=== PATIENT | male | born 1950 | race Caucasian/White ===

== ENCOUNTER 2017-04-09 12:29 | Inpatient (IN) ==
[2017-04-09] MEDS ORDERED: SODIUM CHLORIDE 0.9% 2,250 ML IV ONE (12:52)
[2017-04-09 13:07] LABS: Basophils # 0.1 10*3/uL (0.0-0.2); Basophils % 0.3 % (0.0-0.8); Eosinophils # 0.2 10*3/uL (0.0-0.87); Eosinophils % 1.3 % (0.00-10.9); Hematocrit 33.2 VOL% (42.0-52.0); Hemoglobin 11.6 GM/DL (14.0-18.0); Immature Granulocytes % 0.7 %; Immature Granulocytes Absolute 0.12 #; Lymphocytes # 1.6 10*3/uL (1.4-4.0); Mean Corpuscular HGB Conc 34.9 GM/DL (32-36); Mean Corpuscular Hemoglobin 32 PG (27-34); Mean Corpuscular Volume 90.7 FL (87-102); Monocytes # 1.4 10*3/uL (0.11-0.8); Monocytes % 8.1 % (1.7-12.7); Neutrophils # 13.8 10*3/uL (1.4-7.4); Neutrophils % 80.6 % (38.7-73.9); Platelet Count 333 T/CUMM (130-400); Red Blood Count 3.66 MC/CUMM (3.8-5.5); Red Cell Distribution Width 14.7 % (9.3-17.3); White Blood Count 17.2 T/CUMM (4-12)
[2017-04-09] MEDS ORDERED: PIPERACILLIN/TAZOBACTAM 3,375 MG VIAL IV ONE (13:24)
[2017-04-09] MEDS ORDERED: SODIUM CHLORIDE 0.9% 100 ML IV ONE (13:25)
[2017-04-09 13:26] LABS: INR 1.1; PT Patient Result 11.6 SECS; Partial Thromboplastin Time 35.2 SECS (0-40)
[2017-04-09] MEDS: PIPERACILLIN/TAZOBACTAM 3,375 MG in SODIUM CHLORIDE 0.9% 100 ML IV SCH ×2 (13:29→21:17)
[2017-04-09 13:38] LABS: Lactic Acid 1.7 MMOL/L (0.4-2.0)
[2017-04-09 13:40] LABS: Albumin 2.4 G/DL (3.4-5.0); Bilirubin,Total 0.7 MG/DL (0.2-1.0); Osmolality,Calculated 270.4 MOS/KG (273-304); Potassium 3.9 MMOL/L (3.5-5.1)
[2017-04-09 14:13] LABS: Apearance,Urine CLOUDY (Clear); Bacteria,Urine Many /HPF (Few); Bilirubin,Urine Negative (Negative); Blood, Urine Small mg/dL (Negative); Glucose,Urine (UA) Negative (Negative); Ketones,Urine Negative (Negative); Mucus,Urine Few /LPF (Occasional); Nitrite,Urine Negative (Negative); Protein,Urine 100 MG/DL; RBC,Urine 8 /HPF (0-4); Urine Color Amber (Yellow); Urine Specific Gravity 1.014 (1.001-1.035); WBC,Urine 444 /HPF (0-6)
[2017-04-09] MEDS: SODIUM CHLORIDE 0.9% 1,000 ML IV SCH (15:10)
[2017-04-09] MEDS ORDERED: ACETAMINOPHEN 325 MG TABLET PO PRN (16:02)
[2017-04-09] MEDS ORDERED: ONDANSETRON 4 MG/2 ML VIAL IV PRN (16:02)
[2017-04-09] MEDS ORDERED: VANCOMYCIN INJ 1,250 MG in SODIUM CHLORIDE 0.45% 250 ML IV SCH (17:00)
[2017-04-09] MEDS ORDERED: NOREPINEPHRINE 8 MG in SODIUM CHLORIDE 0.9% 242 ML IV SCH (17:51)
[2017-04-10 03:53] LABS: Basophils # 0.1 10*3/uL (0.0-0.2); Basophils % 0.4 % (0.0-0.8); Eosinophils # 0.2 10*3/uL (0.0-0.87); Eosinophils % 1.3 % (0.00-10.9); Hematocrit 31.7 VOL% (42.0-52.0); Hemoglobin 11.3 GM/DL (14.0-18.0); Immature Granulocytes % 0.6 %; Immature Granulocytes Absolute 0.08 #; Lymphocytes # 1.4 10*3/uL (1.4-4.0); Lymphocytes % 10.6 % (21.2-54.2); Mean Corpuscular HGB Conc 35.6 GM/DL (32-36); Mean Corpuscular Hemoglobin 32 PG (27-34); Mean Corpuscular Volume 89.5 FL (87-102); Monocytes % 8.2 % (1.7-12.7); Neutrophils % 78.9 % (38.7-73.9); Platelet Count 300 T/CUMM (130-400); Red Blood Count 3.54 MC/CUMM (3.8-5.5); Red Cell Distribution Width 14.7 % (9.3-17.3); White Blood Count 12.7 T/CUMM (4-12)
[2017-04-10 04:18] LABS: Calcium 7.5 MG/DL (8.5-10.1); Osmolality,Calculated 270.1 MOS/KG (273-304)
[2017-04-10] MEDS: PIPERACILLIN/TAZOBACTAM 3,375 MG in SODIUM CHLORIDE 0.9% 100 ML IV SCH ×3 (04:41→20:47)
[2017-04-10] MEDS ORDERED: PANTOPRAZOLE 40 MG TABLET PO SCH (09:00)
[2017-04-10] MEDS: VANCOMYCIN INJ 1,250 MG in SODIUM CHLORIDE 0.45% 250 ML IV SCH (11:17)
[2017-04-10] MEDS ORDERED: RIVASTIGMINE 13.3 MG/24 HR PATCH TRANSDERM SCH (12:57)
[2017-04-10] MEDS: SODIUM CHLORIDE 0.9% 1,000 ML IV SCH (15:08)
[2017-04-10] MEDS: RIVASTIGMINE 13.3 MG/24 HR PATCH TRANSDERM SCH (17:50)
[2017-04-10] MEDS: IMIPRAMINE 25 MG TABLET PO SCH (20:46)
[2017-04-10] MEDS: ESCITALOPRAM 10 MG TABLET PO SCH (20:46)
[2017-04-10] MEDS: tiZANidine 4 MG TABLET PO SCH (20:47)
[2017-04-10] MEDS: GABAPENTIN 300 MG CAPSULE PO SCH (20:47)
[2017-04-10] MEDS: TEMAZEPAM 15 MG CAPSULE PO PRN (20:47)
[2017-04-10] MEDS: PRIMIDONE 50 MG TABLET PO SCH (20:47)
[2017-04-10] MEDS: MEMANTINE 10 MG TABLET PO SCH (20:47)
[2017-04-11] MEDS: VANCOMYCIN INJ 1,250 MG in SODIUM CHLORIDE 0.45% 250 ML IV SCH (01:25)
[2017-04-11] MEDS: PIPERACILLIN/TAZOBACTAM 3,375 MG in SODIUM CHLORIDE 0.9% 100 ML IV SCH ×3 (06:24→21:49)
[2017-04-11] MEDS: MELOXICAM 7.5 MG TABLET PO SCH (09:59)
[2017-04-11] MEDS: ESCITALOPRAM 10 MG TABLET PO SCH ×2 (10:00→21:47)
[2017-04-11] MEDS: tiZANidine 4 MG TABLET PO SCH ×2 (10:00→21:47)
[2017-04-11] MEDS: GABAPENTIN 300 MG CAPSULE PO SCH ×2 (10:00→21:47)
[2017-04-11] MEDS: PRIMIDONE 50 MG TABLET PO SCH ×2 (10:00→21:47)
[2017-04-11] MEDS: PANTOPRAZOLE 40 MG TABLET PO SCH (10:00)
[2017-04-11] MEDS: ALPRAZolam 0.5 MG TABLET PO SCH (10:00)
[2017-04-11] MEDS: MEMANTINE 10 MG TABLET PO SCH ×2 (10:00→21:47)
[2017-04-11] MEDS: SODIUM CHLORIDE 0.9% 1,000 ML IV SCH (13:00)
[2017-04-11] MEDS: RIVASTIGMINE 13.3 MG/24 HR PATCH TRANSDERM SCH (15:57)
[2017-04-11] MEDS ORDERED: MAGNESIUM SULF RIDER 2 GM in PREMIX 1 EACH IV ONE (17:34)
[2017-04-11] MEDS: IMIPRAMINE 25 MG TABLET PO SCH (21:46)
[2017-04-11] MEDS: TEMAZEPAM 15 MG CAPSULE PO PRN (21:46)
[2017-04-12] MEDS: PIPERACILLIN/TAZOBACTAM 3,375 MG in SODIUM CHLORIDE 0.9% 100 ML IV SCH (06:29)
[2017-04-12 06:42] LABS: Basophils # 0.1 10*3/uL (0.0-0.2); Basophils % 0.6 % (0.0-0.8); Eosinophils # 0.4 10*3/uL (0.0-0.87); Eosinophils % 4.2 % (0.00-10.9); Hematocrit 31.7 VOL% (42.0-52.0); Hemoglobin 10.9 GM/DL (14.0-18.0); Immature Granulocytes % 0.7 %; Immature Granulocytes Absolute 0.06 #; Lymphocytes # 1.3 10*3/uL (1.4-4.0); Lymphocytes % 15.8 % (21.2-54.2); Mean Corpuscular HGB Conc 34.4 GM/DL (32-36); Mean Corpuscular Hemoglobin 31 PG (27-34); Mean Corpuscular Volume 90.1 FL (87-102); Mean Platelet Volume 8.9 FL (9.6-12.0); Monocytes # 0.7 10*3/uL (0.11-0.8); Monocytes % 8.5 % (1.7-12.7); Neutrophils % 70.2 % (38.7-73.9); Platelet Count 294 T/CUMM (130-400); Red Blood Count 3.52 MC/CUMM (3.8-5.5); Red Cell Distribution Width 14.9 % (9.3-17.3); White Blood Count 8.5 T/CUMM (4-12)
[2017-04-12 07:34] LABS: Calcium 7.6 MG/DL (8.5-10.1); Free T4 (Free Thyroxine) 1.24 NG/DL (0.76-1.46); Osmolality,Calculated 274.7 MOS/KG (273-304); Potassium 3.9 MMOL/L (3.5-5.1)
[2017-04-12] MEDS: ALPRAZolam 0.5 MG TABLET PO SCH (09:26)
[2017-04-12] MEDS: MELOXICAM 7.5 MG TABLET PO SCH (09:26)
[2017-04-12] MEDS: ESCITALOPRAM 10 MG TABLET PO SCH (09:26)
[2017-04-12] MEDS: tiZANidine 4 MG TABLET PO SCH (09:26)
[2017-04-12] MEDS: MEMANTINE 10 MG TABLET PO SCH (09:26)
[2017-04-12] MEDS: GABAPENTIN 300 MG CAPSULE PO SCH (09:27)
[2017-04-12] MEDS: PRIMIDONE 50 MG TABLET PO SCH (09:27)
[2017-04-12] MEDS: PANTOPRAZOLE 40 MG TABLET PO SCH (09:27)
[2017-04-12 11:40] VITALS: BP 107/72
== END 2017-04-12 14:58 | disposition home or self-care (01) | DRG 871 ==
LOC: N.ED 12:29 → SUATTDRO 15:05 → N.EDINP 15:13 → N.ICU 17:41 → N.5E 04-10 12:56
PROVIDERS: ADMIT Hospitalist; ATTEND Internal Medicine